=== PATIENT | female | born 1950 | race Caucasian/White ===

== ENCOUNTER 2020-12-30 09:13 | Inpatient (IN) ==
[2020-12-30] MEDS ORDERED: ALBUTEROL 2.5 MG/3 ML NEB RESP TX STA (09:42)
[2020-12-30] MEDS ORDERED: methylPREDNISolone SOD SUC 40 MG/1 ML VIAL IV STA (09:42)
[2020-12-30 10:22] LABS: Hematocrit 29.1 VOL% (35.7-47.0); Hemoglobin 8.9 GM/DL (12.0-16.0); Lymphocytes # 0.2 10*3/uL (1.4-4.0); Lymphocytes % 11.9 % (21.3-54.2); Mean Corpuscular HGB Conc 30.6 GM/DL (32-36); Mean Corpuscular Volume 120.7 FL (87-102); Mean Platelet Volume 11.1 FL (9.6-12.0); Monocytes % 4.8 % (1.7-12.7); NRBC # 0.02 10*3/uL; Neutrophils % 83.3 % (38.7-73.9); Platelet Count 149 T/CUMM (130-400); Red Blood Count 2.41 MC/CUMM (3.8-5.5); Red Cell Distribution Width 19.7 % (9.3-17.3); White Blood Count 1.3 T/CUMM (4-12)
[2020-12-30 10:41] LABS: Amorphous Crystals,Urine Occasional /HPF (Few); Bacteria,Urine Occasional /HPF (Few); Bilirubin,Urine Negative (Negative); Blood, Urine Negative (Negative); Glucose,Urine (UA) Negative (Negative); Hyaline Casts,Urine 29 /LPF (0-3); Ketones,Urine Negative (Negative); Mucus,Urine Occasional /LPF (Occasional); Nitrite,Urine Negative (Negative); Protein,Urine Negative; RBC,Urine 6 /HPF (0-4); Urine Appearance Slightly Hazy (Clear); Urine Color Amber (Yellow); Urine Specific Gravity 1.016 (1.001-1.035)
[2020-12-30 10:41] LABS: INR 1.1; Partial Thromboplastin Time 22.5 SECS (23.9-33.8)
[2020-12-30 10:42] LABS: Calcium 8.9 MG/DL (8.5-10.1); Potassium 4.6 MMOL/L (3.5-5.1)
[2020-12-30 10:45] LABS: Band Neutrophils 1 % (0-10); Lymphocytes 15 % (20-55); Nucleated Red Blood Cells 2 (0-5); Platelet Estimate Adequate; Segmented Neutrophils 82 % (50-85); Total Cells Counted 100
[2020-12-30 10:46] LABS: Atypical Lymphocytes Few; Hypochromasia 1+; Microcytosis 1+
[2020-12-30] MEDS ORDERED: DEXTROSE 50% 25 GM/50 ML VIAL IV PRN (12:23)
[2020-12-30] MEDS ORDERED: GLUCAGON 1 MG VIAL IM PRN (12:23)
[2020-12-30] MEDS ORDERED: DOCUSATE SODIUM 100 MG CAPSULE PO PRN (12:23)
[2020-12-30] MEDS ORDERED: ENOXAPARIN 30 MG/0.3 ML SYRINGE SUBCUT SCH (12:30)
[2020-12-30] MEDS ORDERED: MORPHINE ER 30 MG TABLET PO PRN (12:34)
[2020-12-30] MEDS ORDERED: VANCOMYCIN INJ 1,000 MG in SODIUM CHLORIDE 0.9% 250 ML IV STA (12:40)
[2020-12-30] MEDS ORDERED: VANCOMYCIN INJ 1,000 MG in SODIUM CHLORIDE 0.9% 250 ML IV PRN (12:50)
[2020-12-30] MEDS: ALBUTEROL/IPRATROPIUM 3 ML NEB RESP TX SCH ×2 (14:30→19:23)
[2020-12-30] MEDS: DEXTROSE 5% NACL 0.9% 1,000 ML IV SCH (15:26)
[2020-12-30] MEDS: DEXAMETHASONE 10 MG/1 ML VIAL IV SCH ×2 (15:27→21:34)
[2020-12-30] MEDS: AZITHROMYCIN INJ 250 MG in SODIUM CHLORIDE 0.9% 250 ML IV SCH (17:01)
[2020-12-30] MEDS: ENOXAPARIN 60 MG/0.6 ML SYRINGE SUBCUT SCH (19:15)
[2020-12-30] MEDS: PIPERACILLIN/TAZOBACTAM 3,375 MG in SODIUM CHLORIDE 0.9% 100 ML IV SCH (19:17)
[2020-12-30] MEDS: METOPROLOL TARTRATE 25 MG TABLET PO SCH (21:34)
[2020-12-30] MEDS: DIPYRIDAMOLE/ASPIRIN 200-25 MG CAPSULE PO SCH (21:34)
[2020-12-30] MEDS: traZODone 50 MG TABLET PO SCH (21:34)
[2020-12-30] MEDS: SIMVASTATIN 10 MG TABLET PO SCH (21:34)
[2020-12-31] MEDS: ALBUTEROL/IPRATROPIUM 3 ML NEB RESP TX SCH ×3 (01:00→13:23)
[2020-12-31] MEDS: DEXAMETHASONE 10 MG/1 ML VIAL IV SCH ×3 (05:31→21:02)
[2020-12-31] MEDS: ENOXAPARIN 60 MG/0.6 ML SYRINGE SUBCUT SCH (05:31)
[2020-12-31] MEDS: DEXTROSE 5% NACL 0.9% 1,000 ML IV SCH ×2 (05:43)
[2020-12-31 06:24] LABS: Basophils % 1.1 % (0.0-0.8); Hematocrit 23.5 VOL% (35.7-47.0); Hemoglobin 7.6 GM/DL (12.0-16.0); Immature Granulocytes % 10.5 %; Lymphocytes # 0.2 10*3/uL (1.4-4.0); Mean Corpuscular HGB Conc 32.3 GM/DL (32-36); Mean Corpuscular Volume 116.3 FL (87-102); Mean Platelet Volume 11.6 FL (9.6-12.0); Monocytes % 2.1 % (1.7-12.7); NRBC # 0.03 10*3/uL; Neutrophils % 76.3 % (38.7-73.9); Red Blood Count 2.02 MC/CUMM (3.8-5.5); Red Cell Distribution Width 18.9 % (9.3-17.3)
[2020-12-31 06:29] LABS: Albumin 2.3 G/DL (3.4-5.0); Bilirubin,Direct 0.46 MG/DL (0.0-0.20); Bilirubin,Indirect 0.5 MG/DL (0.0-1.0); Total Protein 6.6 G/DL (5.0-7.5)
[2020-12-31 06:30] LABS: Platelet Count 112 T/CUMM (130-400); White Blood Count 1.9 T/CUMM (4-12)
[2020-12-31 06:38] LABS: Calcium 8.4 MG/DL (8.5-10.1); Osmolality,Calculated 305.4 MOS/KG (273-304); Potassium 4.3 MMOL/L (3.5-5.1); Thyroid Stimulating Hormone 0.302 uIU/ml (0.358-3.74)
[2020-12-31 06:51] LABS: Band Neutrophils 6 % (0-10); Hypochromasia 1+; Lymphocytes 11 % (20-55); Myelocytes 1 %; Nucleated Red Blood Cells 2 (0-5); Segmented Neutrophils 77 % (50-85); Total Cells Counted 100
[2020-12-31 06:52] LABS: Anisocytosis 1+; Microcytosis 1+; Ovalocytes Few
[2020-12-31 06:53] LABS: Platelet Estimate Decreased
[2020-12-31] MEDS: MONTELUKAST 10 MG TABLET PO SCH (08:33)
[2020-12-31] MEDS: METOPROLOL TARTRATE 25 MG TABLET PO SCH ×2 (08:33→21:03)
[2020-12-31] MEDS: PANTOPRAZOLE 40 MG TABLET PO SCH (08:33)
[2020-12-31] MEDS: LEVOTHYROXINE 100 MCG TABLET PO SCH (08:34)
[2020-12-31] MEDS: ESCITALOPRAM 10 MG TABLET PO SCH (08:34)
[2020-12-31] MEDS: DIPYRIDAMOLE/ASPIRIN 200-25 MG CAPSULE PO SCH ×2 (08:35→21:02)
[2020-12-31] MEDS ORDERED: SODIUM CHLORIDE 0.9% 1,000 ML IV PRN (08:49)
[2020-12-31] MEDS: AZITHROMYCIN INJ 250 MG in SODIUM CHLORIDE 0.9% 250 ML IV SCH (08:54)
[2020-12-31] MEDS: PIPERACILLIN/TAZOBACTAM 3,375 MG in SODIUM CHLORIDE 0.9% 100 ML IV SCH ×3 (09:51→21:24)
[2020-12-31] MEDS: DEXTROSE 5% NACL 0.45% 1,000 ML IV SCH (11:01)
[2020-12-31] MEDS: VANCOMYCIN INJ 1,000 MG in SODIUM CHLORIDE 0.9% 250 ML IV SCH (15:01)
[2020-12-31] MEDS ORDERED: APIXABAN 5 MG TABLET PO SCH (21:00)
[2020-12-31] MEDS: SIMVASTATIN 10 MG TABLET PO SCH (21:02)
[2020-12-31] MEDS: traZODone 50 MG TABLET PO SCH (21:02)
[2020-12-31] MEDS: APIXABAN 5 MG TABLET PO SCH (21:02)
[2021-01-01] MEDS: ALBUTEROL/IPRATROPIUM 3 ML NEB RESP TX SCH ×5 (00:11→19:42)
[2021-01-01] MEDS: PIPERACILLIN/TAZOBACTAM 3,375 MG in SODIUM CHLORIDE 0.9% 100 ML IV SCH ×3 (03:45→20:51)
[2021-01-01] MEDS: DEXAMETHASONE 10 MG/1 ML VIAL IV SCH ×2 (03:46→09:55)
[2021-01-01 05:42] LABS: Hematocrit 26.1 VOL% (35.7-47.0); Hemoglobin 8.6 GM/DL (12.0-16.0); Immature Granulocytes % 1.6 %; Immature Granulocytes Absolute 0.05 #; Lymphocytes # 0.3 10*3/uL (1.4-4.0); Lymphocytes % 9.5 % (21.3-54.2); Mean Corpuscular Volume 109.2 FL (87-102); Mean Platelet Volume 11.2 FL (9.6-12.0); Monocytes % 5.2 % (1.7-12.7); NRBC # 0.07 10*3/uL; Neutrophils % 82.7 % (38.7-73.9); Platelet Count 107 T/CUMM (130-400); Red Blood Count 2.39 MC/CUMM (3.8-5.5); Red Cell Distribution Width 23.9 % (9.3-17.3); White Blood Count 3.1 T/CUMM (4-12)
[2021-01-01 06:01] LABS: Calcium 8.3 MG/DL (8.5-10.1); Potassium 4.1 MMOL/L (3.5-5.1)
[2021-01-01 06:07] LABS: Anisocytosis 1+; Hypochromasia 1+; Lymphocytes 10 % (20-55); Microcytosis 1+; Nucleated Red Blood Cells 1 (0-5); Segmented Neutrophils 84 % (50-85); Total Cells Counted 100
[2021-01-01 06:09] LABS: Ovalocytes Few; Platelet Estimate Adequate
[2021-01-01 08:52] LABS: ABG Base Excess 0.1 MMOL/L (-2.5-2.5); ABG HCO3 24.5 MMOL/L (20-26); ABG Oxygen Saturation 95.7 % (95-100); ABG PCO2 42.8 MM HG (35-48); ABG PH 7.379 (7.35-7.45); ABG PO2 81.8 MM HG (80-95); ABG TCO2 23.4 MMOL/L (23-27); Allen Test Positive
[2021-01-01] MEDS: AZITHROMYCIN INJ 500 MG in SODIUM CHLORIDE 0.9% 250 ML IV SCH (09:52)
[2021-01-01] MEDS: LEVOTHYROXINE 100 MCG TABLET PO SCH (09:53)
[2021-01-01] MEDS: ESCITALOPRAM 10 MG TABLET PO SCH (09:53)
[2021-01-01] MEDS: METOPROLOL TARTRATE 25 MG TABLET PO SCH ×2 (09:53→20:15)
[2021-01-01] MEDS: MONTELUKAST 10 MG TABLET PO SCH (09:53)
[2021-01-01] MEDS: PANTOPRAZOLE 40 MG TABLET PO SCH (09:53)
[2021-01-01] MEDS: DIPYRIDAMOLE/ASPIRIN 200-25 MG CAPSULE PO SCH ×2 (09:54→20:15)
[2021-01-01] MEDS: APIXABAN 5 MG TABLET PO SCH ×2 (09:54→20:15)
[2021-01-01] MEDS: DEXTROSE 5% NACL 0.45% 1,000 ML IV SCH (10:08)
[2021-01-01] MEDS: DEXTROSE 5% 1,000 ML IV SCH (12:29)
[2021-01-01] MEDS: VANCOMYCIN INJ 1,000 MG in SODIUM CHLORIDE 0.9% 250 ML IV SCH (17:03)
[2021-01-01] MEDS: traZODone 50 MG TABLET PO SCH (20:15)
[2021-01-02] MEDS: ALBUTEROL/IPRATROPIUM 3 ML NEB RESP TX SCH ×5 (00:35→19:44)
[2021-01-02] MEDS: PIPERACILLIN/TAZOBACTAM 3,375 MG in SODIUM CHLORIDE 0.9% 100 ML IV SCH ×2 (04:34→14:22)
[2021-01-02 05:42] LABS: Basophils % 0.3 % (0.0-0.8); Hematocrit 26.4 VOL% (35.7-47.0); Hemoglobin 8.3 GM/DL (12.0-16.0); Immature Granulocytes % 1.9 %; Immature Granulocytes Absolute 0.06 #; Lymphocytes # 0.3 10*3/uL (1.4-4.0); Lymphocytes % 9.9 % (21.3-54.2); Mean Corpuscular HGB Conc 31.4 GM/DL (32-36); Mean Corpuscular Volume 111.9 FL (87-102); Mean Platelet Volume 11.9 FL (9.6-12.0); Monocytes % 10.8 % (1.7-12.7); NRBC # 0.13 10*3/uL; Neutrophils % 77.1 % (38.7-73.9); Platelet Count 104 T/CUMM (130-400); Red Blood Count 2.36 MC/CUMM (3.8-5.5); Red Cell Distribution Width 24.1 % (9.3-17.3); White Blood Count 3.2 T/CUMM (4-12)
[2021-01-02 06:09] LABS: Calcium 8.9 MG/DL (8.5-10.1); Osmolality,Calculated 300.4 MOS/KG (273-304); Potassium 3.5 MMOL/L (3.5-5.1)
[2021-01-02 06:11] LABS: Band Neutrophils 1 % (0-10); Hypochromasia 1+; Lymphocytes 10 % (20-55); Microcytosis 1+; Nucleated Red Blood Cells 3 (0-5); Ovalocytes Slight; Platelet Estimate Decreased; Segmented Neutrophils 82 % (50-85); Total Cells Counted 100
[2021-01-02] MEDS: DEXAMETHASONE 10 MG/1 ML VIAL IV SCH (09:00)
[2021-01-02] MEDS: LEVOTHYROXINE 100 MCG TABLET PO SCH (09:01)
[2021-01-02] MEDS: APIXABAN 5 MG TABLET PO SCH ×2 (09:01→21:43)
[2021-01-02] MEDS: PANTOPRAZOLE 40 MG TABLET PO SCH (09:01)
[2021-01-02] MEDS: DIPYRIDAMOLE/ASPIRIN 200-25 MG CAPSULE PO SCH ×2 (09:02→21:43)
[2021-01-02] MEDS: METOPROLOL TARTRATE 25 MG TABLET PO SCH ×2 (09:02→21:43)
[2021-01-02] MEDS: ESCITALOPRAM 10 MG TABLET PO SCH (09:02)
[2021-01-02] MEDS: MONTELUKAST 10 MG TABLET PO SCH (09:02)
[2021-01-02] MEDS: AZITHROMYCIN INJ 500 MG in SODIUM CHLORIDE 0.9% 250 ML IV SCH (09:30)
[2021-01-02] MEDS: BUDESONIDE 0.5 MG/2 ML NEB RESP TX SCH ×2 (13:00→19:44)
[2021-01-02] MEDS: VANCOMYCIN INJ 1,000 MG in SODIUM CHLORIDE 0.9% 250 ML IV SCH (13:13)
[2021-01-02] MEDS: DEXTROSE 5% 1,000 ML IV SCH (20:06)
[2021-01-02] MEDS: traZODone 50 MG TABLET PO SCH (21:43)
[2021-01-03] MEDS: ALBUTEROL/IPRATROPIUM 3 ML NEB RESP TX SCH ×4 (00:55→19:50)
[2021-01-03 06:25] LABS: Basophils % 0.3 % (0.0-0.8); Hematocrit 27.5 VOL% (35.7-47.0); Hemoglobin 8.7 GM/DL (12.0-16.0); Immature Granulocytes % 5.1 %; Immature Granulocytes Absolute 0.16 #; Lymphocytes # 0.6 10*3/uL (1.4-4.0); Lymphocytes % 18.6 % (21.3-54.2); Mean Corpuscular HGB Conc 31.6 GM/DL (32-36); Mean Corpuscular Volume 109.6 FL (87-102); NRBC # 0.23 10*3/uL; Platelet Count 106 T/CUMM (130-400); Red Blood Count 2.51 MC/CUMM (3.8-5.5); Red Cell Distribution Width 23.6 % (9.3-17.3); White Blood Count 3.1 T/CUMM (4-12)
[2021-01-03 06:48] LABS: Band Neutrophils 1 % (0-10); Hypochromasia 1+; Lymphocytes 27 % (20-55); Microcytosis 1+; Nucleated Red Blood Cells 13 (0-5); Ovalocytes Slight; Platelet Estimate Decreased; Segmented Neutrophils 54 % (50-85); Total Cells Counted 100
[2021-01-03 06:56] LABS: Calcium 8.3 MG/DL (8.5-10.1); Osmolality,Calculated 295.4 MOS/KG (273-304); Potassium 3.2 MMOL/L (3.5-5.1)
[2021-01-03] MEDS ORDERED: POTASSIUM CHLORIDE RIDER 10 MEQ in PREMIX 1 EACH IV PRN (07:19)
[2021-01-03] MEDS ORDERED: POTASSIUM CHLORIDE 20 MEQ TABLET PO PRN (07:19)
[2021-01-03] MEDS: DEXTROSE 5% 1,000 ML IV SCH ×2 (07:25→15:12)
[2021-01-03] MEDS ORDERED: POTASSIUM CHLORIDE 20 MEQ TABLET PO ONE ×2 (07:40→07:42)
[2021-01-03] MEDS: METOPROLOL TARTRATE 25 MG TABLET PO SCH ×2 (08:28→20:31)
[2021-01-03] MEDS: PANTOPRAZOLE 40 MG TABLET PO SCH (08:28)
[2021-01-03] MEDS: MONTELUKAST 10 MG TABLET PO SCH (08:28)
[2021-01-03] MEDS: APIXABAN 5 MG TABLET PO SCH ×2 (08:28→20:31)
[2021-01-03] MEDS: LEVOTHYROXINE 100 MCG TABLET PO SCH (08:28)
[2021-01-03] MEDS: DIPYRIDAMOLE/ASPIRIN 200-25 MG CAPSULE PO SCH ×2 (08:28→20:31)
[2021-01-03] MEDS: ESCITALOPRAM 10 MG TABLET PO SCH (08:29)
[2021-01-03] MEDS: DEXAMETHASONE 10 MG/1 ML VIAL IV SCH (08:29)
[2021-01-03] MEDS: BUDESONIDE 0.5 MG/2 ML NEB RESP TX SCH ×2 (09:45→19:50)
[2021-01-03] MEDS ORDERED: methylPREDNISolone SOD SUC 125 MG/2 ML VIAL IV ONE (10:04)
[2021-01-03] MEDS: VANCOMYCIN INJ 1,000 MG in SODIUM CHLORIDE 0.9% 250 ML IV SCH (15:44)
[2021-01-03] MEDS: traZODone 50 MG TABLET PO SCH (20:31)
[2021-01-04] MEDS: ALBUTEROL/IPRATROPIUM 3 ML NEB RESP TX SCH ×3 (01:31→13:15)
[2021-01-04 05:46] LABS: Basophils % 0.8 % (0.0-0.8); Hematocrit 27.8 VOL% (35.7-47.0); Hemoglobin 8.7 GM/DL (12.0-16.0); Immature Granulocytes % 7.8 %; Lymphocytes # 0.4 10*3/uL (1.4-4.0); Mean Corpuscular HGB Conc 31.3 GM/DL (32-36); Mean Corpuscular Volume 108.2 FL (87-102); Mean Platelet Volume 11.5 FL (9.6-12.0); Monocytes % 15.9 % (1.7-12.7); NRBC # 0.17 10*3/uL; Neutrophils % 61.5 % (38.7-73.9); Platelet Count 112 T/CUMM (130-400); Red Blood Count 2.57 MC/CUMM (3.8-5.5); Red Cell Distribution Width 22.9 % (9.3-17.3); White Blood Count 2.6 T/CUMM (4-12)
[2021-01-04 06:11] LABS: Calcium 8.4 MG/DL (8.5-10.1); Osmolality,Calculated 297.4 MOS/KG (273-304)
[2021-01-04] MEDS: BUDESONIDE 0.5 MG/2 ML NEB RESP TX SCH (07:31)
[2021-01-04 07:45] LABS: Band Neutrophils 1 % (0-10); Hypochromasia 1+; Lymphocytes 16 % (20-55); Microcytosis 1+; Myelocytes 1 %; Nucleated Red Blood Cells 7 (0-5); Promyelocytes 1 %; Segmented Neutrophils 68 % (50-85); Total Cells Counted 100
[2021-01-04 07:46] LABS: Anisocytosis 1+; Ovalocytes Slight; Platelet Estimate Decreased
[2021-01-04] MEDS: ESCITALOPRAM 10 MG TABLET PO SCH (09:45)
[2021-01-04] MEDS: LEVOTHYROXINE 100 MCG TABLET PO SCH (09:45)
[2021-01-04] MEDS: PANTOPRAZOLE 40 MG TABLET PO SCH (09:45)
[2021-01-04] MEDS: DEXAMETHASONE 10 MG/1 ML VIAL IV SCH (09:45)
[2021-01-04] MEDS: DIPYRIDAMOLE/ASPIRIN 200-25 MG CAPSULE PO SCH (09:45)
[2021-01-04] MEDS: APIXABAN 5 MG TABLET PO SCH (09:45)
[2021-01-04] MEDS: MONTELUKAST 10 MG TABLET PO SCH (09:45)
[2021-01-04] MEDS: DEXTROSE 5% 1,000 ML IV SCH (11:55)
[2021-01-04] MEDS: METOPROLOL TARTRATE 25 MG TABLET PO SCH (12:48)
[2021-01-04 12:49] VITALS: BP 106/49
[2021-01-04] MEDS: VANCOMYCIN INJ 1,000 MG in SODIUM CHLORIDE 0.9% 250 ML IV SCH (13:12)
== END 2021-01-04 16:15 | disposition hospice, home (50) | DRG 54 ==
LOC: N.ED 09:13 → N.EDINP 12:23 → N.4E 13:49
PROVIDERS: ADMIT Internal Medicine; ATTEND Internal Medicine